=== PATIENT | female | born 1985 | race Caucasian/White ===

== ENCOUNTER 2019-06-21 18:26 | Emergency (ER) | payer SELFPAY ==
[~2019-06-21] VITALS: Ht 160 cm; Wt 97.4 kg
[2019-06-21] MEDS ORDERED: DEXAMETHASONE 10 MG/ML (DECADRON) 1 ML VIAL IM STA (18:55)
[2019-06-21] MEDS ORDERED: methylPREDNISolone 80 MG/ML (DEPO MEDROL) VIAL IM STA (18:55)
--- NOTE | 2019-06-21 18:56 | ED General ---
General Chief Complaint: Allergic Reaction Stated Complaint: ALLERGIC REACTION TO MEDS - FACIAL SWELLING Nursing Triage Note: Started having swelling 3 hours ago to her lower lip that has gotten steadily worse. Was sent here from urgent care after they gave her an IM benadryl shot. Started taking macrobid yesterday. Nursing Sepsis Screen: No Definite Risk Source of Information: Patient History of Present Illness Date Seen by Provider: Jun 21, 2019 Time Seen by Provider: 18:34 Initial Comments 33-year-old female presenting to the emergency department with lip swelling. She had just started on Macrobid yesterday. She is being treated for urinary tract infection. She has no difficulty swallowing or breathing. She has not had symptoms like this before. The only new medication or difference for her is a new medication of Macrobid. She did get an IM Benadryl shot from the urgent care and then they told her to come to the emergency department. Allergies and Home Medications Allergies Coded Allergies: nitrofurantoin (Verified Allergy, Unknown, facial swelling, 06/21/19) Home Medications Cephalexin 500 Mg Tablet, 500 MG PO TID Prescribed by: GEORGES DE LA GARZA on 06/21/192027 Prednisone 20 Mg Tab, 40 MG PO DAILY Prescribed by: GEORGES DE LA GARZA on 06/21/192027 Patient Home Medication List Home Medication List Reviewed: Yes Review of Systems Review of Systems Constitutional: No chills, No diaphoresis, No dizziness, No fever, No malaise, No weakness EENTM: other (swelling to her lips); No hoarseness, No mouth swelling, No throat swelling Respiratory: No cough, No dyspnea on exertion, No short of breath, No stridor, No wheezing Cardiovascular: No chest pain Gastrointestinal: No nausea, No vomiting Genitourinary: dysuria, frequency Musculoskeletal: no symptoms reported Skin: other (swelling and redness to her lips) Psychiatric/Neurological: Anxiety Past Hxnalzg-Agaudd-Hcakqw Hx Past Med/Social Hx: Reviewed Nursing Past Med/Soc Hx Patient Social History Alcohol Use: Denies Use Recreational Drug Use: No Smoking Status: Current Everyday Smoker Type Used: Cigarettes, Electronic/Vapor 2nd Hand Smoke Exposure: Yes Recent Foreign Travel: No Contact w/Someone Who Travel: No Recent Infectious Disease Expo: No Recent Hopitalizations: No Seasonal Allergies Seasonal Allergies: No Past Medical History Surgeries: Yes Section Respiratory: No Cardiac: Yes Hypertension Neurological: No Genitourinary: No Gastrointestinal: No Musculoskeletal: No Endocrine: No HEENT: No Cancer: No Psychosocial: Yes Sleep Difficulties, Depression Integumentary: No Physical Exam Vital Signs Vital Signs - First Documented 06/21/19 06/21/19 18:38 20:37 Temp 36.4 Pulse 98 Resp 18 B/P (MAP) 145/98 (114) Pulse Ox 100 O2 Delivery Room Air Capillary Refill : Less Than 3 Seconds Height, Weight, BMI Height: '" Weight: lbs. oz. kg; 38.00 BMI Method: General Appearance: WD/WN, Anxious Eyes: Bilateral Eye PERRL, Bilateral Eye EOMI HEENT: Pharynx Normal; No Pharyngeal Erythema, No Tonsillar Enlargement; Other (swelling and redness to her lips. No stridor and no swelling to her tongue or pharynx) Neck: Full Range of Motion, Normal Inspection, Non Tender, Supple Respiratory: Chest Non Tender, Lungs Clear, Normal Breath Sounds, No Accessory Muscle Use, No Respiratory Distress Cardiovascular: Regular Rate, Rhythm, Normal Peripheral Pulses Extremity: Normal Capillary Refill, No Pedal Edema Neurologic/Psychiatric: Alert, Oriented x3, No Motor/Sensory Deficits, Normal Mood/Affect, help desk consultant II-XII Norm as Tested Skin: Warm/Dry, Erythema (some erythema and redness with swelling to her lips) Progress/Results/Core Measures Suspected Sepsis Recent Fever Within 48 Hours: No Infection Criteria Present: None New/Unexplained Altered Menta: No Sepsis Screen: No Definite Risk SIRS Temperature: Pulse: 98 Respiratory Rate: 18 Blood Pressure 145 /98 Mean: 114 Results/Orders My Orders Orders - GEORGES DE LA GARZA MD Dexamethasone Injection (Decadron Inject (06/21/19 18:55) Methylprednisolone Acetate Inj (Depo-Med (06/21/19 18:55) Cephalexin Capsule (Keflex Capsule) (06/21/19 20:23) Vital Signs/I&O 06/21/19 06/21/19 18:38 20:37 Temp 36.4 37.0 Pulse 98 84 Resp 18 18 B/P (MAP) 145/98 (114) 119/82 Pulse Ox 100 98 O2 Delivery Room Air Capillary Refill : Less Than 3 Seconds Blood Pressure Mean: 114 Progress Note #1: Progress Note Add on Decadron and Depo-Medrol for her angioedema and allergic reaction. Continue to monitor and if she is continuing to do well and improved Will discharge to home on steroids and antihistamines Progress Note #2: Time: 20:16 Progress Note On recheck about 30-40 minutes after IM injection of steroids she was having improvement of her lip swelling. She continued to have no wheezing or difficulty with swallowing. Will discharge on continued steroid for a few days and Benadryl as needed. Change from Macrobid to Keflex for her UTI Departure Impression Primary Impression: Angioedema of lips Qualified Codes: T78.3XXA - Angioneurotic edema, initial encounter Additional Impression: Allergic reaction caused by a drug Qualified Codes: T78.40XA - Allergy, unspecified, initial encounter Disposition: HOME, SELF-CARE Condition: Stable Departure-Patient Inst. Decision time for Depature: 20:24 Referrals: [facility] (PCP) Primary Care Physician DEBRA MORSE (Family) Primary Care Physician Patient Instructions: Angioedema (DC), Adverse Drug Reactions, Adult (DC) Add. Discharge Instructions: Stop the Macrobid (Nitrofurantoin) and take Keflex (Cephalexin) for your urine infection. Sleep with your head elevated to help with swelling. You may also try ice pack 5 -10 minutes every few hours as needed for swelling. Continue steroid and benadryl for swelling and itching. Call 911 or seek medical care immediately for trouble breathing, worsening swelling or difficulty swallowing. All discharge instructions reviewed with patient and/or family. Voiced understanding. Scripts Prednisone (Prednisone) 20 Mg Tab 40 MG PO DAILY for 5 Days, #10 TAB 0 Refills Prov: GEORGES DE LA GARZA MD 06/21/19 Cephalexin (Cephalexin) 500 Mg Tablet 500 MG PO TID for UTI for 7 Days, #20 TAB 0 Refills Prov: GEORGES DE LA GARZA MD 06/21/19 Work/School Note: Work Release Form Date Seen in the Emergency Department: Jun 21, 2019 Return to Work: Jun 23, 2019 Restrictions: No Restrictions GEORGES DE LA GARZA MD Jun 21, 2019 18:56
[2019-06-21] MEDS ORDERED: CEPHALEXIN 250 MG (KEFLEX) CAP PO STA (20:23)
[2019-06-21] MEDS ORDERED: CEPH500T PO (20:28)
[2019-06-21] MEDS ORDERED: PRD20T PO (20:28)
[2019-06-21 20:37] VITALS: BP 119/82
== END 2019-06-21 20:37 | disposition home or self-care (01) ==
LOC: ER FS 18:27
DX: T78.3XXA Angioneurotic edema, initial encounter (principal); T37.8X5A Adverse effect of other specified systemic anti-infectives and antiparasitics, initial encounter; F17.210 Nicotine dependence, cigarettes, uncomplicated; F17.290 Nicotine dependence, other tobacco product, uncomplicated; Z88.1 Allergy status to other antibiotic agents
CPT/HCPCS: 99284

== ENCOUNTER 2019-11-21 13:15 | Emergency (ER) | payer SELFPAY ==
[~2019-11-21] VITALS: Ht 160 cm; Wt 91.5 kg
[~2019-11-21 13:15] MED LIST: CEPH500T PO; PRD20T PO
[2019-11-21 13:28] VITALS: BP 112/76
[2019-11-21 13:49] LABS: CLARITY,URINE CLOUDY; COLOR,URINE AMBER; GLUCOSE, URINE (UA) NEGATIVE (NEGATIVE); KETONES,URINE NEGATIVE (NEGATIVE); PROTEIN,URINE 2+ (NEGATIVE)
[2019-11-21 13:50] LABS: BACTERIA,URINE LARGE /HPF; BILIRUBIN,URINE 1+ (NEGATIVE); LEUKOCYTE ESTERASE ,URINE 2+ (NEGATIVE); NITRITE,URINE POSITIVE (NEGATIVE); WBC,URINE >100 /HPF
[2019-11-21] MEDS ORDERED: CIPR500T4 PO (13:56)
[2019-11-21] MEDS ORDERED: HYDR-83 PO (13:56)
[2019-11-21] MEDS ORDERED: IBUP-1780 PO (13:56)
[2019-11-21] MEDS ORDERED: PHEN-640 PO (13:56)
--- NOTE | 2019-11-21 13:56 | ED GU-Female ---
General Chief Complaint: - Urinary Stated Complaint: LT FLANK PAIN Nursing Triage Note: Patient reports dysuria, chills, and left flank pain since . States her urine is cloudy and she has had UTIs in the past. Denies any history of a kidney stone. Nursing Sepsis Screen: Possible Severe Sepsis Risk Source: patient Exam Limitations: no limitations History of Present Illness Date Seen by Provider: Nov 21, 2019 Time Seen by Provider: 13:30 Initial Comments 34-year-old female with 2 day history of painful urination, chills and develo ping pain in her left side. States history of frequent urinary tract infections, however no history of kidney infections. Denies nausea vomiting or diarrhea. Denies chest pain, cough or shortness of air. Allergies and Home Medications Allergies Coded Allergies: nitrofurantoin (Verified Allergy, Unknown, facial swelling, 06/21/19) Home Medications Cephalexin 500 Mg Tablet, 500 MG PO TID Prescribed by: GEORGES DE LA GARZA on 06/21/192027 Ciprofloxacin HCl 500 Mg Tablet, 500 MG PO BID Prescribed by: HERMILO VILLASEÑOR on 11/21/19 1356 Hydrocodone/Acetaminophen 1 Each Tablet, 1 EACH PO Q4H Prescribed by: HERMILO LUEVANOSTMARIIA on 11/21/19 1356 Ibuprofen 800 Mg Tablet, 800 MG PO Q8H PRN for PAIN Prescribed by: HERMILO VILLASEÑOR on 11/21/19 1356 Phenazopyridine HCl 200 Mg Tablet, 1 TAB PO BID Prescribed by: HERMILO LUEVANOSTMARIIA on 11/21/19 1356 Prednisone 20 Mg Tab, 40 MG PO DAILY Prescribed by: GEORGES DE LA GARZA on 06/21/192027 Patient Home Medication List Home Medication List Reviewed: Yes Review of Systems Review of Systems Constitutional: fever; No malaise, No weakness Respiratory: No cough, No short of breath Cardiovascular: No chest pain, No edema, No palpitations Gastrointestinal: abdominal pain (LLQ); No loss of appetite, No nausea, No vomiting Genitourinary: see HPI, burning, dysuria, frequency, flank pain, urgency Musculoskeletal: back pain Skin: No change in color, No rash Past Lcggujv-Hqagat-Kyftwv Hx Past Med/Social Hx: Reviewed Nursing Past Med/Soc Hx Patient Social History Alcohol Use: Denies Use Recreational Drug Use: No Smoking Status: Current Everyday Smoker Type Used: Cigarettes, Electronic/Vapor 2nd Hand Smoke Exposure: Yes Recent Foreign Travel: No Contact w/Someone Who Travel: No Recent Infectious Disease Expo: No Recent Hopitalizations: No Physical Abuse: No Sexual Abuse: No Mistreated: No Fear: No Seasonal Allergies Seasonal Allergies: No Past Medical History Surgeries: Yes Section Respiratory: No Cardiac: Yes Hypertension Neurological: No Genitourinary: Yes Kidney Infection Gastrointestinal: No Musculoskeletal: No Endocrine: No HEENT: No Cancer: No Psychosocial: Yes Sleep Difficulties, Depression Integumentary: No Physical Exam Vital Signs Vital Signs - First Documented 11/21/19 13:28 Temp 36.6 Pulse 103 Resp 20 B/P (MAP) 112/76 (88) Pulse Ox 100 O2 Delivery Room Air Capillary Refill : Less Than 3 Seconds Height, Weight, BMI Height: '" Weight: lbs. oz. kg; 35.00 BMI Method: General Appearance: WD/WN, no apparent distress Cardiovascular: regular rate, rhythm, no edema Respiratory: chest non-tender, lungs clear Gastrointestinal: normal bowel sounds, soft, no organomegaly, no pulsatile mass; No distended, No guarding, No rebound; tenderness (left flank and left CVA) Back: normal inspection, no vertebral tenderness, CVA tenderness (L); No decreased range of motion Extremities: non-tender, normal inspection, no pedal edema Skin: normal color, warm/dry Progress/Results/Core Measures Suspected Sepsis Recent Fever Within 48 Hours: Yes Infection Criteria Present: Suspected New Infection New/Unexplained Altered Menta: No Sepsis Screen: Possible Severe Sepsis Risk SIRS Temperature: Pulse: 103 Respiratory Rate: 20 Blood Pressure 112 /76 Mean: 88 Results/Orders Lab Results Laboratory Tests Test 11/21/19 13:20 Range/Units Urine Color BRAYDEN H Urine Clarity CLOUDY H Urine pH 6.0 5-9 Urine Specific [place] >=1.030 1.016-1.022 Urine Protein 2+ H NEGATIVE Urine Glucose (UA) NEGATIVE NEGATIVE Urine Ketones NEGATIVE NEGATIVE Urine Nitrite POSITIVE H NEGATIVE Urine Bilirubin 1+ H NEGATIVE Urine Urobilinogen 2.0 < = 1.0 MG/DL Urine Leukocyte Esterase 2+ H NEGATIVE Urine RBC (Auto) 2+ H NEGATIVE Urine RBC 2-5 H /HPF Urine WBC >100 H /HPF Urine Squamous Epithelial Cells 5-10 /HPF Urine Crystals NONE /LPF Urine Bacteria LARGE H /HPF Urine Casts NONE /LPF Urine Mucus SMALL H /LPF Urine Culture Indicated YES My Orders Orders - HERMILO VILLASEÑOR DO Urinalysis (11/21/19 13:23) Urine Culture (11/21/19 13:20) Vital Signs/I&O 11/21/19 13:28 Temp 36.6 Pulse 103 Resp 20 B/P (MAP) 112/76 (88) Pulse Ox 100 O2 Delivery Room Air Capillary Refill : Less Than 3 Seconds Blood Pressure Mean: 88 Progress Note : Progress Note Well appearing, no distress, vital signs stable. Clinical signs of early pyelonephritis with laboratory confirmation. We'll start antibiotics, pain medication with plans for follow-up with PCP in one week for reevaluation, ER sooner if worse and not tolerating pain Departure Impression Primary Impression: Pyelonephritis Disposition: HOME, SELF-CARE Condition: Stable Departure-Patient Inst. Decision time for Depature: 13:54 Referrals: [facility] (PCP) Primary Care Physician DEBRA MORSE (Family) Primary Care Physician Patient Instructions: Kidney Infection (DC) Scripts Phenazopyridine HCl (Pyridium) 200 Mg Tablet 1 TAB PO BID, #6 TAB Prov: HERMILO VILLASEÑOR DO 11/21/19 Ibuprofen (Ibuprofen) 800 Mg Tablet 800 MG PO Q8H PRN for PAIN, #30 TAB 0 Refills Prov: HERMILO VILLASEÑOR DO 11/21/19 Hydrocodone/Acetaminophen (Hydrocodone-Acetamin 5-325 mg) 1 Each Tablet 1 EACH PO Q4H for Abdominal Pain, #14 TAB Prov: HERMILO VILLASEÑOR DO 11/21/19 Ciprofloxacin HCl (Ciprofloxacin HCl) 500 Mg Tablet 500 MG PO BID, #20 TAB Prov: CHLOÉSTINEHERMILO DO 11/21/19 HERMILO VILLASEÑOR DO Nov 21, 2019 13:56
== END 2019-11-21 14:03 | disposition home or self-care (01) ==
LOC: EDUNIT# 13:15 → ER FS 13:16
DX: N12 Tubulo-interstitial nephritis, not specified as acute or chronic (principal); F17.210 Nicotine dependence, cigarettes, uncomplicated; F17.290 Nicotine dependence, other tobacco product, uncomplicated; Z88.1 Allergy status to other antibiotic agents; Z79.52 Long term (current) use of systemic steroids
CPT/HCPCS: 81000; 87077; 87088; 87186; 99282

== ENCOUNTER 2020-05-21 00:48 | Emergency (ER) | payer SELFPAY ==
[~2020-05-21] VITALS: Ht 160 cm; Wt 83.7 kg
[~2020-05-21 00:48] MED LIST changes: +ACHD5005 PO; +CIPR500T4 PO; +IBUP-1780 PO; +PHEN-640 PO
[2020-05-21 01:00] VITALS: BP 140/88
[2020-05-21 01:10] LABS: CLARITY,URINE CLEAR; COLOR,URINE ORANGE
[2020-05-21 01:14] LABS: BILIRUBIN,URINE 1+ (NEGATIVE); GLUCOSE, URINE (UA) TRACE (NEGATIVE); KETONES,URINE NEGATIVE (NEGATIVE); LEUKOCYTE ESTERASE ,URINE NEGATIVE (NEGATIVE); NITRITE,URINE POSITIVE (NEGATIVE); PROTEIN,URINE 1+ (NEGATIVE)
--- NOTE | 2020-05-21 01:14 | ED GI ---
General Stated Complaint: LOWER BACK PAIN Source of Information: Patient Exam Limitations: No Limitations History of Present Illness Date Seen by Provider: May 21, 2020 Time Seen by Provider: 01:08 Initial Comments 34-year-old female presents with burning with urination and lower abdominal discomfort onset yesterday. History of UTIs as well as kidney infections with last infection over 6 months ago. Denies back or flank pain, fever or chills. Allergies and Home Medications Allergies Coded Allergies: nitrofurantoin (Verified Allergy, Unknown, facial swelling, 06/21/19) Home Medications Cephalexin 500 Mg Tablet, 500 MG PO TID Prescribed by: GEORGES DE LA GARZA on 06/21/192027 Ciprofloxacin HCl 500 Mg Tablet, 500 MG PO BID Prescribed by: HERMILO VILLASEÑOR on 11/21/19 135 Hydrocodone/Acetaminophen 1 Each Tablet, 1 EACH PO Q4H Prescribed by: HERMILO VILLASEÑOR on 11/21/19 135 Ibuprofen 800 Mg Tablet, 800 MG PO Q8H PRN for PAIN Prescribed by: HERMILO VILLASEÑOR on 11/21/19 135 Phenazopyridine HCl 200 Mg Tablet, 1 TAB PO BID Prescribed by: HERMILO VILLASEÑOR on 11/21/19 135 Prednisone 20 Mg Tab, 40 MG PO DAILY Prescribed by: GEORGES DE LA GARZA on 06/21/192027 Patient Home Medication List Home Medication List Reviewed: Yes Review of Systems Review of Systems Constitutional: see HPI; No chills, No fever, No malaise, No weakness Respiratory: Denies Cough, Denies Shortness of Air Cardiovascular: Denies Chest Pain, Denies Edema Gastrointestinal: Abdominal Pain (lower); Denies Nausea, Denies Poor Appetite, Denies Vomiting Genitourinary: See HPI, Burning, Frequency; Denies Flank Pain; Hematuria; Denies Incontinence; Pain, Urgency Musculoskeletal: No back pain, No joint pain Past Zwmlmit-Xlhfia-Bvnpvw Hx Past Med/Social Hx: Reviewed Nursing Past Med/Soc Hx Patient Social History Type Used: Cigarettes, Electronic/Vapor 2nd Hand Smoke Exposure: Yes Recent Hopitalizations: No Seasonal Allergies Seasonal Allergies: No Past Medical History Surgeries: Yes Section Respiratory: No Cardiac: Yes Hypertension Neurological: No Genitourinary: Yes Kidney Infection Gastrointestinal: No Musculoskeletal: No Endocrine: No HEENT: No Cancer: No Psychosocial: Yes Sleep Difficulties, Depression Integumentary: No Physical Exam Vital Signs Vital Signs - First Documented 05/21/20 01:00 Temp 37.1 Pulse 98 Resp 14 B/P (MAP) 140/88 (105) O2 Delivery Room Air Capillary Refill : Height/Weight/BMI Height: '" Weight: lbs. oz. kg; 35.00 BMI Method: General Appearance: WD/WN, no apparent distress Gastrointestinal: soft, no organomegaly; No distended, No guarding, No rebound; tenderness (suprapubic) Back: normal inspection, no CVA tenderness Progress/Results/Core Measures Results/Orders Lab Results Laboratory Tests Test 05/21/20 01:00 Range/Units Urine Color ORANGE Urine Clarity CLEAR Urine pH 7.0 5-9 Urine Specific [place] 1.025 H 1.016-1.022 Urine Protein 1+ H NEGATIVE Urine Glucose (UA) TRACE H NEGATIVE Urine Ketones NEGATIVE NEGATIVE Urine Nitrite POSITIVE H NEGATIVE Urine Bilirubin 1+ H NEGATIVE Urine Urobilinogen >=8.0 < = 1.0 MG/DL Urine Leukocyte Esterase NEGATIVE NEGATIVE Urine RBC (Auto) NEGATIVE NEGATIVE Urine RBC NONE /HPF Urine WBC NONE /HPF Urine Squamous Epithelial Cells 10-25 H /HPF Urine Crystals NONE /LPF Urine Bacteria NEGATIVE /HPF Urine Casts NONE /LPF Urine Mucus NEGATIVE /LPF Urine Culture Indicated YES My Orders Orders - HERMILO VILLASEÑOR DO Urinalysis (05/21/20 01:07) Phenazopyridine Tablet (Pyridium Tablet) (05/21/20 01:15) Urine Culture (05/21/20 01:00) Vital Signs/I&O 05/21/20 01:00 Temp 37.1 Pulse 98 Resp 14 B/P (MAP) 140/88 (105) O2 Delivery Room Air Progress Progress Note : Progress Note no evidence of UTI, moderately concentrated w elev. SG. no WBC's or RBC's or bacteria on UA. advised dietary changes, drink more water and less caffeine/ shandra Departure Impression Primary Impression: Dysuria Disposition: 01 HOME, SELF-CARE Condition: Stable Departure-Patient Inst. Decision time for Depature: 01:09 Referrals: [facility] (PCP) Primary Care Physician DEBRA MORSE (Family) Primary Care Physician Patient Instructions: Dysuria, Adult (DC) Add. Discharge Instructions: See your doctor next week for a recheck of your urine. Please drink much less coffee and cola drinks and drink MORE water. Scripts Phenazopyridine HCl (Pyridium) 200 Mg Tablet 1 TAB PO BID, #6 TAB Prov: HERMILO VILLASEÑOR DO 05/21/20 HERMILO VILLASEÑOR DO May 21, 2020 01:14
[2020-05-21 01:15] LABS: BACTERIA,URINE NEGATIVE /HPF
[2020-05-21] MEDS ORDERED: PHENAZOPYRIDINE 100 MG (PYRIDIUM) TABLET PO ONE (01:15)
[2020-05-21] MEDS ORDERED: PHENAZOPYRIDINE 100 MG (PYRIDIUM) TABLET ONE (01:22)
[2020-05-21] MEDS ORDERED: PHEN-640 PO (01:27)
== END 2020-05-21 01:42 | disposition home or self-care (01) ==
LOC: EDUNIT# 00:48 → ER FS 00:52
DX: R30.0 Dysuria (principal); Z77.22 Contact with and (suspected) exposure to environmental tobacco smoke (acute) (chronic); Z88.8 Allergy status to other drugs, medicaments and biological substances; Z79.52 Long term (current) use of systemic steroids
CPT/HCPCS: 81000; 87088; 99283

== ENCOUNTER 2020-11-03 12:05 | Emergency (ER) | payer SELFPAY ==
[~2020-11-03] VITALS: Ht 160 cm; Wt 75.9 kg
[~2020-11-03 12:05] MED LIST changes: -CIPR500T4 PO; +CIPR500T5 PO
--- NOTE | 2020-11-03 12:19 | ED General ---
General Stated Complaint: NECK PAIN History of Present Illness Date Seen by Provider: Nov 03, 2020 Time Seen by Provider: 12:16 Initial Comments 35-year-old female presents with left lateral neck pain/muscle spasm. Patient reports that she been working on cleaning out a trailer. She has pain on the left lateral portion of her neck. No midline tenderness. No numbness tingling or other neurologic symptoms. She reports that it is worse to try to move her head to the left. No reported trauma. No fevers chills or other systemic complaints. Allergies and Home Medications Allergies Coded Allergies: nitrofurantoin (Verified Allergy, Unknown, facial swelling, 06/21/19) Home Medications Cyclobenzaprine HCl 10 Mg Tablet, 10 MG PO Q8H PRN for SPASMS Prescribed by: MARII GRAY on 11/03/20 1234 Ibuprofen 800 Mg Tablet, 800 MG PO Q8H PRN for PAIN Prescribed by: HERMILO VILLASEÑOR on 11/21/19 1356 Patient Home Medication List Home Medication List Reviewed: Yes Review of Systems Review of Systems Constitutional: no symptoms reported EENTM: see HPI Respiratory: no symptoms reported Cardiovascular: no symptoms reported Gastrointestinal: no symptoms reported Genitourinary: no symptoms reported Musculoskeletal: see HPI Skin: no symptoms reported Psychiatric/Neurological: No Symptoms Reported Hematologic/Lymphatic: No Symptoms Reported Past Arwnuzd-Kwpodi-Mgacbc Hx Seasonal Allergies Seasonal Allergies: No Past Medical History Surgeries: Yes Section Respiratory: No Cardiac: Yes Hypertension Neurological: No Genitourinary: Yes Kidney Infection Gastrointestinal: No Musculoskeletal: No Endocrine: No HEENT: No Cancer: No Psychosocial: Yes Sleep Difficulties, Depression Integumentary: No Blood Disorders: No Physical Exam Vital Signs Vital Signs - First Documented 11/03/20 12:09 Temp 36.0 Pulse 83 Resp 16 B/P (MAP) 127/87 (100) Pulse Ox 100 O2 Delivery Room Air Capillary Refill : Height, Weight, BMI Height: '" Weight: lbs. oz. kg; 32.00 BMI Method: General Appearance: No Apparent Distress Neck: Tender Lateral Respiratory: Chest Non Tender, Lungs Clear Cardiovascular: Regular Rate, Rhythm, No Edema Gastrointestinal: Non Tender, Soft Extremity: Normal Capillary Refill, Normal Inspection Neurologic/Psychiatric: Alert, Oriented x3 Skin: Normal Color, Warm/Dry Progress/Results/Core Measures Suspected Sepsis SIRS Temperature: Pulse: Respiratory Rate: Blood Pressure / Mean: Results/Orders My Orders Orders - ISAACMARII DO Orphenadrine Inj (Ed Only) (Norflex Inje (11/03/20 12:20) Vital Signs/I&O 11/03/20 11/03/20 12:09 12:45 Temp 36.0 36.0 Pulse 83 83 Resp 16 16 B/P (MAP) 127/87 (100) 127/87 (100) Pulse Ox 100 100 O2 Delivery Room Air Capillary Refill : Progress Note : Progress Note Patient with left-sided torticollis/muscle spasm. This time x-rays are not indicated. I will prescribe her muscle relaxant, she can also take ibuprofen 800 mg 3 times a day and Tylenol. She should follow-up with her primary care provider 4 to 5 days if symptoms or not improving. Patient stable and dischar ged Departure Impression Primary Impression: Spasm of cervical paraspinous muscle Disposition: HOME, SELF-CARE Condition: Stable Departure-Patient Inst. Referrals: DEBRA MORSE (PCP) Primary Care Physician [facility] (Family) Primary Care Physician Patient Instructions: Torticollis (DC), Muscle Spasms (DC) Add. Discharge Instructions: Warm moist heat to affected area 4% topical lidocaine with menthol to affected area Ibuprofen 800 mg 3 times a day Follow-up with your primary care provider in 4 to 5 days if symptoms are not improving Scripts Cyclobenzaprine HCl (Cyclobenzaprine HCl) 10 Mg Tablet 10 MG PO Q8H PRN for SPASMS, #15 TAB 0 Refills Prov: MARII GRAY DO 11/03/20 MARII GRAY DO Nov 03, 2020 12:19
[2020-11-03] MEDS ORDERED: ORPHENADRINE 60 MG/2 ML (NORFLEX) AMP (ED ONLY) IM STA (12:20)
[2020-11-03] MEDS ORDERED: CYCL10TA9 PO (12:34)
[2020-11-03 12:45] VITALS: BP 127/87
[2020-11-03] MEDS ORDERED: HYDRALAZINE HCL (13:13)
[2020-11-03] MEDS ORDERED: Lisinopril (13:13)
== END 2020-11-03 12:45 | disposition home or self-care (01) ==
LOC: EDUNIT# 12:05 → ER FS 12:07
DX: M62.838 Other muscle spasm (principal); I10 Essential (primary) hypertension
CPT/HCPCS: 99284

== ENCOUNTER 2020-11-10 01:04 | Emergency (ER) | payer SELFPAY ==
[~2020-11-10] VITALS: Ht 160 cm; Wt 77.1 kg
[~2020-11-10 01:04] MED LIST changes: +CYCL10TA9 PO; +HYDRALAZINE HCL; +Lisinopril
--- NOTE | 2020-11-10 01:14 | ED General ---
General Stated Complaint: RT FOOT PAIN History of Present Illness Date Seen by Provider: Nov 10, 2020 Time Seen by Provider: 01:14 Initial Comments Patient presenting to the emergency department for evaluation of possible bite wound that was sustained at approximately 1230 this morning. Patient says she was walking in her grass driveway that has some gravel in it when she heard something moving in the weeds and she turned her back to get away from it and then felt a strong sharp pain on the bottom of her right foot. There is significant swelling and there is 2 puncture wounds and she did not see a snake but she is concerned that she was bit by 1. She is unsure of her last tetanus so will be updated here. She says the wound hurts significantly. Allergies and Home Medications Allergies Coded Allergies: nitrofurantoin (Verified Allergy, Unknown, facial swelling, 06/21/19) Home Medications Cyclobenzaprine HCl 10 Mg Tablet, 10 MG PO Q8H PRN for SPASMS Prescribed by: MARII GRAY on 11/03/20 1234 Ibuprofen 800 Mg Tablet, 800 MG PO Q8H PRN for PAIN Prescribed by: HERMILO VILLASEÑOR on 11/21/19 1356 Patient Home Medication List Home Medication List Reviewed: Yes Review of Systems Review of Systems Constitutional: no symptoms reported EENTM: no symptoms reported Respiratory: no symptoms reported Cardiovascular: no symptoms reported Gastrointestinal: no symptoms reported Musculoskeletal: joint swelling, muscle pain Skin: other (bite wound) Psychiatric/Neurological: No Symptoms Reported All Other Systems Reviewed Negative Unless Noted: Yes Past Rwkgrdx-Kjaawx-Femeyi Hx Seasonal Allergies Seasonal Allergies: No Past Medical History Surgeries: Yes Section Respiratory: No Cardiac: Yes Hypertension Neurological: No Genitourinary: Yes Kidney Infection Gastrointestinal: No Musculoskeletal: No Endocrine: No HEENT: No Cancer: No Psychosocial: Yes Sleep Difficulties, Depression Integumentary: No Blood Disorders: No Physical Exam Vital Signs Vital Signs - First Documented Capillary Refill : Height, Weight, BMI Height: '" Weight: lbs. oz. kg; 29.00 BMI Method: General Appearance: No Apparent Distress, WD/WN HEENT: PERRL/EOMI Respiratory: No Respiratory Distress Cardiovascular: Normal Peripheral Pulses, Tachycardia Gastrointestinal: Non Tender, Soft Extremity: Normal Capillary Refill, Swelling (Right foot has 2 small puncture wounds to the plantar aspect of the midfoot. There is significant swelling circumferentially throughout the entire foot that extends proximally past the ankle. There is associated erythema and tenderness. The compartments are tight but are soft and compressible.) Neurologic/Psychiatric: Alert Focused Exam Lactate Level 11/10/20 01:34: Lactic Acid Level Laboratory Tests Test 11/10/20 01:34 Progress/Results/Core Measures Suspected Sepsis SIRS Temperature: Pulse: Respiratory Rate: Laboratory Tests 11/10/20 01:13: White Blood Count 9.2 Blood Pressure / Mean: 11/10/20 01:34: Laboratory Tests 11/10/20 01:13: INR Comment 0.9, Platelet Count 336 Results/Orders Lab Results Laboratory Tests Test 11/10/20 01:13 11/10/20 01:34 Range/Units White Blood Count 9.2 4.3-11.0 10^3/uL Red Blood Count 4.11 L 4.35-5.85 10^6/uL Hemoglobin 13.3 11.5-16.0 G/DL Hematocrit 39 35-52 % Mean Corpuscular Volume 95 80-99 FL Mean Corpuscular Hemoglobin 32 25-34 PG Mean Corpuscular Hemoglobin Concent 34 32-36 G/DL Red Cell Distribution Width 12.6 10.0-14.5 % Platelet Count 336 130-400 10^3/uL Mean Platelet Volume 10.0 7.4-10.4 FL Immature Granulocyte % (Auto) 0 % Neutrophils (%) (Auto) 60 42-75 % Lymphocytes (%) (Auto) 30 12-44 % Monocytes (%) (Auto) 8 0-12 % Eosinophils (%) (Auto) 1 0-10 % Basophils (%) (Auto) 0 0-10 % Neutrophils # (Auto) 5.5 1.8-7.8 X 10^3 Lymphocytes # (Auto) 2.8 1.0-4.0 X 10^3 Monocytes # (Auto) 0.7 0.0-1.0 X 10^3 Eosinophils # (Auto) 0.1 0.0-0.3 10^3/uL Basophils # (Auto) 0.0 0.0-0.1 10^3/uL Immature Granulocyte # (Auto) 0.0 0.0-0.1 10^3/uL Neutrophils % (Manual) % Prothrombin Time 12.9 12.2-14.7 SEC INR Comment 0.9 0.8-1.4 Activated Partial Thromboplast Time 27 24-35 SEC My Orders Orders - TERI PRADO DO Iv/Invasive Line Insertion .IV start (11/10/20 01:19) Cbc With Automated Diff (11/10/20 01:19) Comprehensive Metabolic Panel (11/10/20 01:19) Drug Screen Stat (Urine) (11/10/20:19) Hcg,Qualitative Urine (11/10/20:19) Alcohol (11/10/20:19) Ua Culture If Indicated (11/10/20:19) Protime With Inr (11/10/20 01:19) Partial Thromboplastin Time (11/10/20:19) Lactic Acid Analyzer (11/10/20:19) Creatine Kinase (11/10/20:19) Ns Iv 1000 Ml (Sodium Chloride 0.9%) (11/10/20 01:30) Foot 3 View Right (11/10/20 01:22) Dipht,Pertuss(Acell),Tet Adult (Boostrix (11/10/20 01:45) Fibrinogen (11/10/20 01:36) Ondansetron Injection (Zofran Injectio (11/10/20 02:00) Morphine Injection (Morphine Injection (11/10/20 01:53) Manual Differential (11/10/20 01:13) Medications Given in ED Current Medications Medications Dose Ordered Sig/Lanre Route Start Time Stop Time Status Last Admin Dose Admin Diphtheria/ Tetanus/Acell Pertussis 0.5 ml ONCE ONCE IM 11/10/20 01:45 11/10/20 01:46 DC 11/10/20 01:45 0.5 ML Ondansetron HCl 4 mg ONCE ONCE IVP 11/10/20 02:00 11/10/20 02:01 DC 11/10/20 02:01 4 MG Vital Signs/I&O 11/10/20 11/10/20 11/10/20 11/10/20 01:08 01:08 01:30 02:00 Temp 36.5 36.5 Pulse 108 108 92 79 Resp 28 28 29 18 B/P (MAP) 152/87 152/87 (108) 132/82 (99) 131/83 (99) Pulse Ox 98 98 99 100 O2 Delivery Room Air Room Air Room Air Room Air 11/10/20 02:02 Temp 36.5 Capillary Refill : Progress Note : Progress Note I spoke to the poison center and they stated that this is concerning given the amount of swelling and air is present to the foot. They recommended she be at a facility where she can get the correct dosing of CroFab antivenom if necessary. We have 1 vial here and I spoke to pharmacy at [facility] and they said they only have one vial there. Be typical loading doses 4-6 vials. I asked the poison center if they would like me to give the 1 vial we have available and he spoke to his aesthetics instructor and they said not to and to hold off at this time but again reiterated they recommended transfer to another facility. The wounds were cleansed and the extremity was elevated and I am treating her pain aggressively. I spoke to Dr. Begum, trauma surgeon at [facility] and he agreed to accept the patient for transfer. He asked us to have the patient sent to the emergency room there. Patient will be transferred in guarded condition. Patient agreeable with plan. Departure Impression Primary Impression: Bite by animal Additional Impressions: Foot swelling Lactic acid acidosis Disposition: XFER SHT-TRM HOSP Condition: Unchanged Transfer Transfer Reason: Exceeds level of care Transfer Facility: [facility] Method of Transfer: EMS Departure-Patient Inst. Referrals: DEBRA MORSE (PCP) Primary Care Physician [facility] (Family) Primary Care Physician TERI PRADO DO Nov 10, 2020 01:14
[2020-11-10] MEDS ORDERED: NS IV 1000 ML 1,000 ML IV SCH (01:30)
[2020-11-10] MEDS ORDERED: TETANUS,DIPTH,PERTUSS P/F (BOOSTRIX) 0.5 ML VIAL IM ONE (01:45)
[2020-11-10] MEDS ORDERED: morphine INJ 10 MG/ML 1ML (SYR OR VIAL) IVP STA (01:53)
[2020-11-10 01:57] LABS: EOSINOPHILS % (AUTO) 1 % (0-10); HEMATOCRIT 39 % (35-52); HEMOGLOBIN 13.3 G/DL (11.5-16.0); LYMPHOCYTES % (AUTO) 30 % (12-44); MEAN CORPUSCULAR HEMOGLOBIN 32 PG (25-34); MEAN CORPUSCULAR HGB CONC 34 G/DL (32-36); MEAN CORPUSCULAR VOLUME 95 FL (80-99); MONOCYTES % (AUTO) 8 % (0-12); NEUTROPHILS % (AUTO) 60 % (42-75); PLATELET COUNT 336 10^3/uL (130-400); WHITE BLOOD COUNT 9.2 10^3/uL (4.3-11.0)
[2020-11-10 01:58] LABS: BASOPHILS % (AUTO) 0 % (0-10); EOSINOPHILS # (AUTO) 0.1 10^3/uL (0.0-0.3); LYMPHOCYTES # (AUTO) 2.8 X 10^3 (1.0-4.0); MONOCYTES # (AUTO) 0.7 X 10^3 (0.0-1.0); NEUTROPHILS # (AUTO) 5.5 X 10^3 (1.8-7.8)
[2020-11-10] MEDS ORDERED: ONDANSETRON 4 MG/2 ML (SDV) Z0FRAN IVP ONE (02:00)
[2020-11-10 02:07] LABS: INR 0.9 (0.8-1.4); PROTHROMBIN TIME PATIENT 12.9 SEC (12.2-14.7)
[2020-11-10 02:14] LABS: ALANINE AMINOTRANSFERASE 13 U/L (0-55); ALKALINE PHOSPHATASE 72 U/L (40-136); BILIRUBIN,TOTAL 0.4 MG/DL (0.1-1.0); BUN/CREATININE RATIO 18; CALCIUM 9.4 MG/DL (8.5-10.1); CARBON DIOXIDE 28 MMOL/L (21-32); CHLORIDE 105 MMOL/L (98-107); CREATININE SERUM 0.79 MG/DL (0.60-1.30); GFR ESTIMATED > 60; GLUCOSE 103 MG/DL (70-105); POTASSIUM 3.3 MMOL/L (3.6-5.0); SODIUM 140 MMOL/L (135-145)
[2020-11-10 02:15] LABS: ALBUMIN 4.2 GM/DL (3.2-4.5)
[2020-11-10] MEDS ORDERED: fentaNYL INJ 100 MCG/2 ML AMP IVP ONE (02:15)
[2020-11-10] MEDS ORDERED: KETOROLAC 30 MG/ML VIAL IVP ONE (02:15)
[2020-11-10] MEDS ORDERED: CROTALIDAE ANTIVENIN IV ONE (03:00)
[2020-11-10] MEDS ORDERED: NS IV ONE (03:00)
[2020-11-10] MEDS ORDERED: CROTALIDAE Antivenin, OVINE (CROFAB) VIAL ONE ×2 (03:01→07:32)
[2020-11-10] MEDS ORDERED: NS (IVPB) 0 ML ONE (03:03)
[2020-11-10 04:32] LABS: BASOPHILS % (AUTO) 0 % (0-10); EOSINOPHILS % (AUTO) 2 % (0-10); HEMATOCRIT 35 % (35-52); HEMOGLOBIN 11.4 G/DL (11.5-16.0); LYMPHOCYTES % (AUTO) 42 % (12-44); MEAN CORPUSCULAR HEMOGLOBIN 32 PG (25-34); MEAN CORPUSCULAR HGB CONC 33 G/DL (32-36); MEAN CORPUSCULAR VOLUME 96 FL (80-99); MEAN PLATELET VOLUME 9.6 FL (7.4-10.4); MONOCYTES % (AUTO) 8 % (0-12); NEUTROPHILS % (AUTO) 48 % (42-75); PLATELET COUNT 281 10^3/uL (130-400); WHITE BLOOD COUNT 7.8 10^3/uL (4.3-11.0)
[2020-11-10 04:33] LABS: EOSINOPHILS # (AUTO) 0.1 10^3/uL (0.0-0.3); LYMPHOCYTES # (AUTO) 3.3 X 10^3 (1.0-4.0); MONOCYTES # (AUTO) 0.6 X 10^3 (0.0-1.0); NEUTROPHILS # (AUTO) 3.7 X 10^3 (1.8-7.8)
[2020-11-10 04:43] LABS: ATYPICAL LYMPHOCYTES 1 %; EOSINOPHILS % (MANUAL) 2 %; LYMPHOCYTES % (MANUAL) 56 %; MONOCYTES % (MANUAL) 2 %; NEUTROPHILS % (MANUAL) 39 %; PLATELET ESTIMATE ADEQUATE; RBC MORPH NORMAL
[2020-11-10 04:48] LABS: ALANINE AMINOTRANSFERASE 11 U/L (0-55); ALBUMIN 3.8 GM/DL (3.2-4.5); ALKALINE PHOSPHATASE 59 U/L (40-136); BILIRUBIN,TOTAL 0.3 MG/DL (0.1-1.0); BUN/CREATININE RATIO 20; CALCIUM 8.5 MG/DL (8.5-10.1); CARBON DIOXIDE 27 MMOL/L (21-32); CHLORIDE 108 MMOL/L (98-107); CREATININE SERUM 0.71 MG/DL (0.60-1.30); GFR ESTIMATED > 60; GLUCOSE 86 MG/DL (70-105); POTASSIUM 3.4 MMOL/L (3.6-5.0); SODIUM 144 MMOL/L (135-145); TOTAL PROTEIN 5.8 GM/DL (6.4-8.2)
[2020-11-10 04:49] LABS: PROTHROMBIN TIME PATIENT 13.1 SEC (12.2-14.7)
--- NOTE | 2020-11-10 05:56 | Diagnostic Imaging Report ---
INDICATION: Right foot pain and swelling. FINDINGS: 3 views of the right foot show no fracture, dislocation or other acute abnormalities. IMPRESSION: Negative right foot. Dictated by: Dictated on workstation # [id number]
[2020-11-10 08:00] VITALS: BP 117/80
[2020-11-10 08:17] LABS: BASOPHILS % (AUTO) 1 % (0-10); EOSINOPHILS # (AUTO) 0.2 10^3/uL (0.0-0.3); EOSINOPHILS % (AUTO) 2 % (0-10); HEMATOCRIT 34 % (35-52); HEMOGLOBIN 11.3 G/DL (11.5-16.0); LYMPHOCYTES # (AUTO) 3.6 X 10^3 (1.0-4.0); LYMPHOCYTES % (AUTO) 51 % (12-44); MEAN CORPUSCULAR HEMOGLOBIN 32 PG (25-34); MEAN CORPUSCULAR HGB CONC 33 G/DL (32-36); MEAN CORPUSCULAR VOLUME 97 FL (80-99); MEAN PLATELET VOLUME 9.8 FL (7.4-10.4); MONOCYTES # (AUTO) 0.6 X 10^3 (0.0-1.0); MONOCYTES % (AUTO) 9 % (0-12); NEUTROPHILS # (AUTO) 2.6 X 10^3 (1.8-7.8); NEUTROPHILS % (AUTO) 37 % (42-75); PLATELET COUNT 265 10^3/uL (130-400)
[2020-11-10 08:41] LABS: EOSINOPHILS % (MANUAL) 2 %; LYMPHOCYTES % (MANUAL) 42 %; MONOCYTES % (MANUAL) 5 %; NEUTROPHILS % (MANUAL) 39 %; RBC MORPH NORMAL; REACTIVE LYMPHOCYTES 12 %
[2020-11-10 08:53] LABS: PROTHROMBIN TIME PATIENT 13.3 SEC (12.2-14.7)
[2020-11-10 10:04] LABS: CREATINE KINASE 135 U/L (29-168)
== END 2020-11-10 08:00 | disposition short-term general hospital (02) ==
LOC: EDUNIT# 01:04 → ER FS 01:05
DX: S91.351A Open bite, right foot, initial encounter (principal); E87.2 Acidosis; R00.0 Tachycardia, unspecified; I10 Essential (primary) hypertension; Z23 Encounter for immunization; W64.XXXA Exposure to other animate mechanical forces, initial encounter; Y92.093 Driveway of other non-institutional residence as the place of occurrence of the external cause
CPT/HCPCS: 36415; 73630; 80053; 82550; 83605; 85007 ×2; 85025; 85027 ×2; 85384; 85610; 85730; 99284; G0480; 80320; 90715